=== PATIENT | male | born 1975 | race African-American/Black ===

== ENCOUNTER 2021-11-06 14:03 | Emergency (ER) | payer OTHER ==
[~2021-11-06] VITALS: Ht 180.3 cm; Wt 122.5 kg
[2021-11-06] MEDS ORDERED: ZESTRIL5 MG (14:11)
[2021-11-06] MEDS ORDERED: METFORMIN HCL500 M3 (14:11)
== END 2021-11-06 17:39 | disposition home or self-care (01) ==
LOC: ER 14:03
DX: R10.11 Right upper quadrant pain (principal)